=== PATIENT | female | born 1985 | race American Indian/Alaskan Native ===

== ENCOUNTER 2017-08-21 13:44 | Emergency (ER) | payer SELFPAY | END 2017-08-21 13:45 | disposition left against medical advice (07) | LOC: ED 13:44 | DX: M79.604 Pain in right leg (principal); Z53.21 Procedure and treatment not carried out due to patient leaving prior to being seen by health care provider ==

== ENCOUNTER 2017-10-25 15:32 | Emergency (ER) | payer SELFPAY ==
[2017-10-25 15:59] VITALS: BP 124/79
== END 2017-10-25 17:25 | disposition left against medical advice (07) ==
LOC: ED 15:32
DX: Z53.21 Procedure and treatment not carried out due to patient leaving prior to being seen by health care provider (principal)

== ENCOUNTER 2018-05-06 18:11 | Emergency (ER) | payer OTHER ==
--- NOTE | 2018-05-06 18:18 | Emergency Department Report ---
Blank Doc - Documentation Documentation: This is a 32-year-old female that presents with acute on chronic headaches. D enies any head injuries or trauma. Patient stated that started after trying a migraine medication. Denies thunderclap headache or worst headache. Stated is usually migraine symptoms. Exam: neuro exam within normal limits. Normal muscle strength bilateral. No facial drooping. This initial assessment/diagnostic orders/clinical plan/treatment(s) is/are subject to change based on patient's health status, clinical progression and re- assessment by fellow clinical providers in the ED. Further treatment and workup at subsequent clinical providers discretion. Patient/guardians urged not to elope from the ED as their condition may be serious if not clinically assessed and managed. Initial orders include: 1- Patient sent to [facility] for further evaluation and treatment
[2018-05-06] MEDS ORDERED: DECADRON IM ONE (19:17)
[2018-05-06] MEDS ORDERED: BENADRYL PO ONE (19:17)
[2018-05-06] MEDS ORDERED: REGLAN PO ONE (19:17)
[2018-05-06] MEDS ORDERED: TYLENOL PO ONE (19:17)
--- NOTE | 2018-05-06 19:56 | Emergency Department Report ---
ED Headache HPI - General Chief Complaint: Headache Stated Complaint: SEVERE HEADACHE Time Seen by Provider: 05/06/18 18:16 - History of Present Illness Initial Comments: This is a 32-year-old female that presents with acute on chronic headaches. Denies any head injuries or trauma. Patient stated that started after trying a migraine medication. Denies thunderclap headache or worst headache. Stated is usually migraine symptoms Timing/Duration: 1 week Quality: moderate Recent Head Trauma: no recent headache/trauma, occasional headaches Associated Symptoms: nausea/vomiting, nasal congestion, nasal drainage, sinus infection. denies: fever/chills Allergies/Adverse Reactions: Allergies aspirin Allergy (Verified 05/06/18 18:12) Anaphylaxis nuts Allergy (Uncoded 10/25/17 15:59) Anaphylaxis Home Medications: Ambulatory Orders Acetaminophen [Tylenol Extra Strength] 1,000 mg PO QID PRN #30 tablet 05/06/18 Amoxicillin/Potassium Clav [Augmentin 875-125 Tablet] 1 each PO BID 10 Days #20 tablet 05/06/18 Fluticasone [Flonase] 1 spray NS QDAY #1 bottle 05/06/18 Metoclopramide [Reglan] 10 mg PO Q6H PRN #30 tablet 05/06/18 diphenhydrAMINE [Benadryl CAP] 25 mg PO Q6HR PRN #30 capsule 05/06/18 ED Review of Systems ROS: Stated complaint: SEVERE HEADACHE Other details as noted in HPI Constitutional: denies: chills, fever Eyes: denies: eye pain, eye discharge, vision change ENT: ear pain, throat pain, congestion Respiratory: denies: cough, shortness of breath, wheezing Cardiovascular: denies: chest pain, palpitations Endocrine: no symptoms reported Gastrointestinal: denies: abdominal pain, nausea, vomiting, diarrhea Genitourinary: denies: urgency, dysuria, discharge Musculoskeletal: denies: back pain, joint swelling, arthralgia Skin: denies: rash, lesions Neurological: headache. denies: weakness, numbness, paresthesias, confusion, abnormal gait, vertigo Psychiatric: denies: anxiety, depression Hematological/Lymphatic: denies: easy bleeding, easy bruising ED Past Medical Hx - Past Medical History Hx Headaches / Migraines: Yes - Surgical History Past Surgical History?: No - Social History Smoking Status: Never Smoker Substance Use Type: None - Medications Home Medications: Home Medications Medication Instructions Recorded Confirmed Last Taken Type Acetaminophen [Tylenol Extra 1,000 mg PO QID PRN #30 tablet 05/06/18 Unknown Rx Strength] Amoxicillin/Potassium Clav 1 each PO BID 10 Days #20 tablet 05/06/18 Unknown Rx [Augmentin 875-125 Tablet] Fluticasone [Flonase] 1 spray NS QDAY #1 bottle 05/06/18 Unknown Rx Metoclopramide [Reglan] 10 mg PO Q6H PRN #30 tablet 05/06/18 Unknown Rx diphenhydrAMINE [Benadryl CAP] 25 mg PO Q6HR PRN #30 capsule 05/06/18 Unknown Rx ED Physical Exam - General Limitations: No Limitations General appearance: alert, in no apparent distress - Head Head exam: Present: atraumatic, normocephalic, normal inspection - Eye Eye exam: Present: normal appearance, PERRL, EOMI Pupils: Present: normal accommodation - ENT ENT exam: Present: normal orophraynx, mucous membranes moist, TM's normal bilaterally, normal external ear exam, other (bilat frontal and maxillary sinus pain no swelling no erythema , bilat turbinate erytheme yellow clear postnasal drip ) - Expanded ENT Exam Expanded Ear exam: Present: normal external inspection TM/Canal exam: Erythema: Right TM, Left TM, Canal Tenderness: Right TM, Left TM Mouth exam: Present: tongue normal, tongue elevation. Absent: trismus Teeth exam: Present: normal inspection Throat exam: Positive: tonsillar erythema, tonsillomegaly, other ( uvula midline no stridor no exudate no lesions no wheezing ). Negative: tonsillar exudate, R peritonsillar mass, L peritonsillar mass - Neck Neck exam: Present: normal inspection, full ROM, lymphadenopathy. Absent: tenderness, meningismus, thyromegaly - Respiratory Respiratory exam: Present: normal lung sounds bilaterally. Absent: respiratory distress, wheezes, stridor, chest wall tenderness - Cardiovascular Cardiovascular Exam: Present: regular rate, normal rhythm, normal heart sounds. Absent: systolic murmur, diastolic murmur, rubs, gallop ED Course Vital Signs 05/06/18 18:15 Temperature 97.4 F L Pulse Rate 88 Respiratory 18 Rate Blood Pressure 121/75 O2 Sat by Pulse 100 Oximetry ED Medical Decision Making - Medical Decision Making Symptoms on medications given in ED plan treat for sinusitis as this is sinus headache Augmentin Benadryl Tylenol Reglan Flonase patient will follow up with PCP in 2-3 days return immediately should symptoms worsen, pt verbized agreement and understanding of discharge plan. pt is a/ox 3 ambulatory with steady gait at this time. pain reduced to 2/10 Critical care attestation.: If time is entered above; I have spent that time in minutes in the direct care of this critically ill patient, excluding procedure time. ED Disposition Clinical Impression: Sinus headache Sinusitis Qualifiers: Sinusitis location: frontal Chronicity: acute Recurrence: non-recurrent Qualified Code(s): J01.10 - Acute frontal sinusitis, unspecified Disposition: TO HOME OR SELFCARE Is pt being admited?: No Does the pt Need Aspirin: No Condition: Stable Instructions: Sinusitis (ED), Acute Headache (ED) Prescriptions: Amoxicillin/Potassium Clav [Augmentin 875-125 Tablet] 1 each PO BID 10 Days #20 tablet diphenhydrAMINE [Benadryl CAP] 25 mg PO Q6HR PRN #30 capsule PRN Reason: Headache Fluticasone [Flonase] 1 spray NS QDAY #1 bottle Metoclopramide [Reglan] 10 mg PO Q6H PRN #30 tablet PRN Reason: Headache Acetaminophen [Tylenol Extra Strength] 1,000 mg PO QID PRN #30 tablet PRN Reason: Headache Referrals: ROEL DU MD [Primary Care Provider] - 3-5 Days RACHEL CORNELIUS MD [Referring] - 3-5 Days [facility] [Outside] - 3-5 Days Forms: Work/School Release Form(ED) Time of Disposition: 19:59
[2018-05-06 20:59] VITALS: BP 109/66
== END 2018-05-06 20:59 | disposition home or self-care (01) ==
LOC: ED 18:11
DX: G43.909 Migraine, unspecified, not intractable, without status migrainosus (principal); J32.9 Chronic sinusitis, unspecified; Z88.6 Allergy status to analgesic agent; Z91.018 Allergy to other foods
CPT/HCPCS: 96372; 99282; J1100

== ENCOUNTER 2019-03-01 21:01 | Emergency (ER) | payer OTHER ==
[2019-03-02] MEDS ORDERED: ACETAMINOPHEN 325 MG TAB ONE (00:35)
[2019-03-02] MEDS ORDERED: ACETAMINOPHEN 325 MG TAB PO ONE (00:38)
[2019-03-02] MEDS ORDERED: ONDANSETRON 4 MG/2 ML INJ IV STA (01:10)
[2019-03-02] MEDS ORDERED: SODIUM CHLORIDE 0.9% 1000 ML 1,000 ML IV ONE (01:10)
[2019-03-02] MEDS ORDERED: dexAMETHasone 4 MG/ML VIAL IV ONE (01:11)
--- NOTE | 2019-03-02 01:34 | Emergency Department Report ---
- General Chief Complaint: Upper Respiratory Infection Stated Complaint: FLU LIKE SYMPTOMS Time Seen by Provider: 03/02/19 01:02 Source: patient Mode of arrival: Ambulatory Limitations: No Limitations - History of Present Illness MD Complaint: fever, cough, rhinorrhea, nasal congestion, other (coryza and myalgia) -: Sudden, days(s) (3) Severity: moderate Quality: dull, aching Consistency: constant Improves With: nothing Worsens With: nothing Context: sick contacts Associated Symptoms: fever, chills, myalgias, diaphoresis, headache, rhinorrhea, nasal congestion, cough, nausea - Related Data Previous Rx's Medication Instructions Recorded Last Taken Type Acetaminophen [Tylenol Extra 1,000 mg PO QID PRN #30 tablet 05/06/18 Unknown Rx Strength] Amoxicillin/Potassium Clav 1 each PO BID 10 Days #20 tablet 05/06/18 Unknown Rx [Augmentin 875-125 Tablet] Fluticasone [Flonase] 1 spray NS QDAY #1 bottle 05/06/18 Unknown Rx Metoclopramide [Reglan] 10 mg PO Q6H PRN #30 tablet 05/06/18 Unknown Rx diphenhydrAMINE [Benadryl CAP] 25 mg PO Q6HR PRN #30 capsule 05/06/18 Unknown Rx ALBUTEROL Inhaler (OR & NICU) 2 puff IH QID PRN #1 inhalation 03/02/19 Unknown Rx [ProAir HFA Inhaler] guaiFENesin/CODEINE [Robitussin AC] 5 ml PO Q6H PRN #120 ml 03/02/19 Unknown Rx predniSONE [Deltasone] 50 mg PO QDAY #5 tab 03/02/19 Unknown Rx Allergies Allergy/AdvReac Type Severity Reaction Status Date / Time aspirin Allergy Anaphylaxis Verified 05/06/18 18:12 nuts Allergy Anaphylaxis Uncoded 10/25/17 15:59 ED Review of Systems ROS: Stated complaint: FLU LIKE SYMPTOMS Other details as noted in HPI Comment: All other systems reviewed and negative ED Past Medical Hx - Past Medical History Previous Medical History?: Yes Hx Headaches / Migraines: Yes - Surgical History Past Surgical History?: No - Social History Smoking Status: Never Smoker Substance Use Type: None - Medications Home Medications: Home Medications Medication Instructions Recorded Confirmed Last Taken Type Acetaminophen [Tylenol Extra 1,000 mg PO QID PRN #30 tablet 05/06/18 Unknown Rx Strength] Amoxicillin/Potassium Clav 1 each PO BID 10 Days #20 tablet 05/06/18 Unknown Rx [Augmentin 875-125 Tablet] Fluticasone [Flonase] 1 spray NS QDAY #1 bottle 05/06/18 Unknown Rx Metoclopramide [Reglan] 10 mg PO Q6H PRN #30 tablet 05/06/18 Unknown Rx diphenhydrAMINE [Benadryl CAP] 25 mg PO Q6HR PRN #30 capsule 05/06/18 Unknown Rx ALBUTEROL Inhaler (OR & NICU) 2 puff IH QID PRN #1 inhalation 03/02/19 Unknown Rx [ProAir HFA Inhaler] guaiFENesin/CODEINE [Robitussin AC] 5 ml PO Q6H PRN #120 ml 03/02/19 Unknown Rx predniSONE [Deltasone] 50 mg PO QDAY #5 tab 03/02/19 Unknown Rx ED Physical Exam - General Limitations: No Limitations General appearance: alert, lethargic - Head Head exam: Present: atraumatic, normocephalic - Eye Eye exam: Present: normal appearance - ENT ENT exam: Present: mucous membranes moist - Neck Neck exam: Present: normal inspection - Respiratory Respiratory exam: Present: normal lung sounds bilaterally, rhonchi. Absent: respiratory distress, prolonged expiratory - Cardiovascular Cardiovascular Exam: Present: normal rhythm, tachycardia. Absent: systolic murmur, diastolic murmur, rubs, gallop - GI/Abdominal GI/Abdominal exam: Present: soft, normal bowel sounds - Extremities Exam Extremities exam: Present: normal inspection - Back Exam Back exam: Present: normal inspection - Neurological Exam Neurological exam: Present: alert, oriented X3, CN II-XII intact - Psychiatric Psychiatric exam: Present: normal affect, normal mood - Skin Skin exam: Present: warm, dry, intact, normal color. Absent: rash ED Course Vital Signs 03/01/19 21:18 Temperature 101.7 F H Pulse Rate 121 H Respiratory 18 Rate Blood Pressure 124/81 O2 Sat by Pulse 99 Oximetry ED Medical Decision Making - Medical Decision Making 33-year-old -[place] female presents emergency department complaining of a sudden onset of fever, acute cough,nausea, sore throat, malaise consistent with viral illness such as Influenza. The acute cough, may also be consistent with bronchitis, possible hyperreactive airway disease, pneumonia. Differential diagnosis includes influenza, pneumonia, common cold, bronchitis. Presentation not consistent with asthma, transient airway hyperresponsiveness. Presentation not consistent with chronic causes of cough (including GERD, asthma, postnasal discharge, medication side effect, CHF, lung cancer or mass). Plan: CXR, supportive care, reassess Patient Not , from SNF, chronically ill or immunosuppressed. Given History and Exam I have a lower suspicion for: Emergent CardioPulmonary causes [such as Acute Asthma or COPD Exacerbation, acute Heart Failure or exacerbation, PE, PTX, atypical ACS, PNA]. Emergent Otolaryngeal causes [such as JACQUARD LACE WEAVER, RPA, Ludwigs, Epiglottitis, EBV]. Emergent Travel or Immunosuppressive related infectious causes[such as acute HIV, SARS, MERS]. Rx: Given patient symptomatic greater than 48hrs will instruct on conservative self-care and techniques to reduce spread for this suspected transient and self- resolving illness. Disposition: Discharge with strict return precautions. Follow up with primary care provider within 24 hours. Critical care attestation.: If time is entered above; I have spent that time in minutes in the direct care of this critically ill patient, excluding procedure time. ED Disposition Clinical Impression: Fever, Dehydration, Viral syndrome Disposition: DC-01 TO HOME OR SELFCARE Is pt being admited?: No Does the pt Need Aspirin: No Condition: Stable Instructions: Viral Syndrome (ED), Acute Nausea and Vomiting (ED), Dehydration (ED) Referrals: HENRRY RIVERA [Other] - 3-5 Days
--- NOTE | 2019-03-02 02:50 | XRay Report ---
CHEST 2 VIEWS, 03/02/2019 1:53 AM INDICATION: Fever. Cough. COMPARISON: None FINDINGS: Support devices: None Heart: Heart size and pulmonary vascularity appear within normal limits. Lungs/pleura: The lungs are well expanded and appear clear of focal airspace disease or significant p leural effusion. Additional findings: None IMPRESSION: 1. No evidence of acute cardiopulmonary process. Signer Name: Melina Casarez MD Signed: 03/02/2019 2:45 AM Workstation Name: [id number]
[2019-03-02 03:22] VITALS: BP 116/66
== END 2019-03-02 03:35 | disposition home or self-care (01) ==
LOC: ED 21:01
DX: E86.0 Dehydration (principal); B34.9 Viral infection, unspecified; G43.909 Migraine, unspecified, not intractable, without status migrainosus; Z79.899 Other long term (current) drug therapy
CPT/HCPCS: 71046; 96361; 96374; 96375; 99283; J1100; J2405; J7030